=== PATIENT | male | born 1955 | race American Indian/Alaskan Native ===

== ENCOUNTER 2022-05-21 14:27 | Emergency (ER) | payer MEDICARE ==
[2022-05-21 14:50] VITALS: BP 145/59
[2022-05-21] MEDS ORDERED: diphenhydrAMINE 25 MG CAP PO ONE (23:37)
[2022-05-21] MEDS ORDERED: predniSONE 20 MG TAB PO ONE (23:38)
[2022-05-21] MEDS ORDERED: FAMOTIDINE 20 MG TAB PO ONE (23:38)
--- NOTE | 2022-05-21 23:46 | Emergency Department Report ---
ED General Adult HPI - General Chief complaint: Skin Rash Stated complaint: SHOULDER PAIN, RASH Time Seen by Provider: 05/21/22 23:37 Source: patient Mode of arrival: Ambulatory Limitations: No Limitations - History of Present Illness Initial comments: Patient 67-year-old female with history of eczema who presents for dry flaky rash bilateral hands palms and forearms after handling bleach. He denies fevers or chills there is no wheezing no shortness of breath no nausea or vomiting. Primary symptom is itching. Symptoms are exacerbated by it scratch cycle. Symptoms are relieved by itch scratch cycle. - Related Data Previous Rx's Medication Instructions Recorded Last Taken Type Doxycycline Monohydrate 100 mg PO BID 7 Days #14 each 05/21/22 Unknown Rx Famotidine [Pepcid] 20 mg PO BID 7 Days #14 tablet 05/21/22 Unknown Rx diphenhydrAMINE [Benadryl CAP] 25 mg PO Q6HR PRN 7 Days #30 05/21/22 Unknown Rx capsule predniSONE [Deltasone] 20 mg PO DAILY 5 Days #5 tab 05/21/22 Unknown Rx Allergies Allergy/AdvReac Type Severity Reaction Status Date / Time penicillin G Allergy Anaphylaxis Verified 05/21/22 14:51 ED Review of Systems ROS: Stated complaint: SHOULDER PAIN, RASH Other details as noted in HPI Constitutional: denies: chills, fever Eyes: denies: eye pain, eye discharge, vision change ENT: denies: ear pain, throat pain Respiratory: denies: cough, shortness of breath, wheezing Cardiovascular: denies: chest pain, palpitations Endocrine: no symptoms reported Gastrointestinal: denies: abdominal pain, nausea, diarrhea Genitourinary: denies: urgency, dysuria Musculoskeletal: denies: back pain, joint swelling, arthralgia Skin: rash (Bilateral hands forearms palms. .) Neurological: denies: headache, weakness, paresthesias, vertigo Psychiatric: denies: anxiety, depression Hematological/Lymphatic: denies: easy bleeding, easy bruising ED Past Medical Hx - Medications Home Medications: Home Medications Medication Instructions Recorded Confirmed Last Taken Type Doxycycline Monohydrate 100 mg PO BID 7 Days #14 each 05/21/22 Unknown Rx Famotidine [Pepcid] 20 mg PO BID 7 Days #14 tablet 05/21/22 Unknown Rx diphenhydrAMINE [Benadryl CAP] 25 mg PO Q6HR PRN 7 Days #30 05/21/22 Unknown Rx capsule predniSONE [Deltasone] 20 mg PO DAILY 5 Days #5 tab 05/21/22 Unknown Rx ED Physical Exam - General Limitations: No Limitations General appearance: alert, in no apparent distress - Head Head exam: Present: normocephalic, normal inspection - Eye Eye exam: Present: normal appearance, PERRL, EOMI Pupils: Present: normal accommodation - ENT ENT exam: Present: mucous membranes moist - Neck Neck exam: Present: normal inspection. Absent: tenderness, full ROM, lymphadenopathy - Respiratory Respiratory exam: Present: normal lung sounds bilaterally. Absent: respiratory distress, wheezes, stridor - Cardiovascular Cardiovascular Exam: Present: regular rate, normal rhythm, normal heart sounds. Absent: systolic murmur, diastolic murmur, rubs, gallop - GI/Abdominal GI/Abdominal exam: Present: soft, normal bowel sounds. Absent: distended, tenderness, bruit, hernia - Rectal Rectal exam: Present: deferred - Extremities Exam Extremities exam: Present: normal inspection, full ROM, normal capillary refill. Absent: tenderness - Back Exam Back exam: Present: normal inspection, full ROM. Absent: CVA tenderness (R), CVA tenderness (L) - Neurological Exam Neurological exam: Present: alert, oriented X3, CN II-XII intact, normal gait, reflexes normal. Absent: motor sensory deficit - Psychiatric Psychiatric exam: Present: normal affect, normal mood - Skin Skin exam: Present: warm, dry, intact, normal color, rash (Dry flaky raised rough to the bilateral dorsal hands forearms and palms. ), other ( Rash described as dry flaky raised with pruritus no open skin no weeping no fever chills) ED Course Vital Signs 05/21/22 14:47 Temperature 98 F Pulse Rate 99 H Respiratory 18 Rate Blood Pressure 145/59 [Left] O2 Sat by Pulse 99 Oximetry ED Medical Decision Making - Medical Decision Making This is likely contact dermatitis with mild cellulitis , patient is penicillin allergic. Plan DC to home with prescriptions. Follow-up with primary care doctor in 2 to 3 days. Critical care attestation.: If time is entered above; I have spent that time in minutes in the direct care of this critically ill patient, excluding procedure time. ED Disposition Clinical Impression: Cellulitis, abdominal wall Eczema Qualifiers: Eczema type: unspecified Qualified Code(s): L30.9 - Dermatitis, unspecified Disposition: 01 HOME / SELF CARE / HOMELESS Is pt being admited?: No Does the pt Need Aspirin: No Condition: Stable Instructions: Cellulitis, Adult, Eczema Additional Instructions: Take medications as prescribed, follow-up with your primary care doctor in 2 to 3 days return to emergency department should symptoms worsen. Prescriptions: diphenhydrAMINE [Benadryl CAP] 25 mg PO Q6HR PRN 7 Days #30 capsule PRN Reason: itching predniSONE [Deltasone] 20 mg PO DAILY 5 Days #5 tab Doxycycline Monohydrate 100 mg PO BID 7 Days #14 each Famotidine [Pepcid] 20 mg PO BID 7 Days #14 tablet Referrals: HEAVEN BURLESON MD [Staff Physician] - 3-5 Days Forms: Work/School Release Form(ED) Time of Disposition: 23:59
== END 2022-05-22 00:42 | disposition home or self-care (01) ==
LOC: ED 14:27
DX: L03.311 Cellulitis of abdominal wall (principal); L30.9 Dermatitis, unspecified; Z88.0 Allergy status to penicillin
CPT/HCPCS: 99282